=== PATIENT | male | born 1945 | race Caucasian/White ===

== ENCOUNTER 2020-03-26 06:06 | Inpatient (IN) ==
--- NOTE | 2020-02-22 11:42 | Anesthesiology Consultation ---
Date of Service February 22, 2020 Assessment & Plan (1) Encounter for pre-operative examination: Chart Review Chart Review: Acceptable Risk for Surgery (pending anesthesiologist review of EKG DOS and CXR results ) and Patient NOT seen in Pre Admission Testing Awaiting CXR - per order sheet- done at [facility]- will attempt to get results from correctional facility prior to surgery - Check PT/INR DOS since on Coumadin Anesthesiologist will need to review EKG DOS to confirm preliminary reading since EKG was done at [facility]. History Surgery Operation Date: 02/27/20 07:30 Proposed Procedures p Aortobifemoral Bypass - Ozzie Syed MD Height/Weight Height: 6 ft Weight: 90.718 kg Allergies Allergy/AdvReac Type Severity Reaction Status Date / Time No Known Allergies Allergy Verified 02/22/20 07:28 Medications Home Medications Medication Instructions Recorded Confirmed Last Taken enoxaparin [Lovenox] 80 mg SUBCUT DAILY 02/22/20 02/22/20 Unknown famotidine 20 mg PO DAILY 02/22/20 02/22/20 Unknown metoprolol tartrate 25 mg PO QAM 02/22/20 02/22/20 Unknown multivitamin with iron 1 tab PO BID 02/22/20 02/22/20 Unknown potassium chloride 20 meq PO DAILY 02/22/20 02/22/20 Unknown rosuvastatin 20 mg PO DAILY 02/22/20 02/22/20 Unknown tamsulosin 0.4 mg PO DAILY 02/22/20 02/22/20 Unknown warfarin 7 mg PO UD 02/22/20 02/22/20 Unknown Past Medical History Medical History (Updated 02/22/20 @ 16:06 by Silvana Gonzalez PA-C) Anemia Atherosclerosis of arteries CLAUDICATION BILATERAL LEGS Atrial fibrillation Cellulitis ABSCESS PER PROBLEM LIST- WBC CT WNL AND PT NOT ON ABX- STATUS WILL NEED EVALUATED FURTHER AM OF SURGERY Diverticulosis Hyperlipidemia Hypertension Inmate in correctional facility Osteomyelitis PVD (peripheral vascular disease) Social History Smoking Status: Unknown if ever smoked Testing Laboratory Results 02/13/20= WBC: 6.83 H/H: 15.5/43.4 PLATELETS: 272 SODIUM: 143 POTASSIUM: 4.7 CHLORIDE: 107 CO2: 28 BUN: 21 CREATININE: 1.14 GLUCOSE: 130 PT: 24.6 PTT: 47.1 INR: 2.32 Electrocardiogram Date: 02/14/20 Findings: + SB @ (56) Nonspecific T wave abnormality (unconfirmed since done at [facility])
[~2020-03-26 06:06] MED LIST: CEFAZOLIN 2000MG 2,000 MG/15 ML SYR IV SCH; LACTATED RINGER'S 1,000 ML IV SCH
[2020-03-26] MEDS ORDERED: LIDOCAINE HCL 2% 2 ML VIAL/AMP(20MG/ML) INFIL ONE (06:36)
[2020-03-26] MEDS ORDERED: PROPOFOL IV EMULSION 10 MG/ML 20 ML VIAL IV ONE (06:36)
[2020-03-26] MEDS ORDERED: fentaNYL citrate 100 MCG/2 ML VIAL ONE ×2 (06:36→11:26)
[2020-03-26] MEDS ORDERED: ONDANSETRON INJ 2 MG/ML 2 ML VIAL ONE (06:36)
[2020-03-26] MEDS ORDERED: ROCURONIUM BROMIDE 10 MG/ML 5 ML VIAL ONE ×9 (06:36→13:25)
[2020-03-26] MEDS ORDERED: CEFAZOLIN 250 MG/ML 1 GM VIAL ONE (06:58)
[2020-03-26] MEDS ORDERED: HEPARIN (PORCINE) 1000 UNIT/ML 10 ML (CATH LAB USE ONLY) ONE ×2 (06:58→07:20)
[2020-03-26] MEDS ORDERED: GELATIN SPONGE 12-7MM ONE (06:58)
[2020-03-26] MEDS ORDERED: THROMBIN FOR SOLN 20000 UNIT KIT ONE (06:59)
[2020-03-26] MEDS ORDERED: GELATIN SPONGE SZ 100 ONE (07:00)
[2020-03-26] MEDS ORDERED: fentaNYL citrate 100 MCG/2 ML VIAL IV PRN (07:05)
[2020-03-26] MEDS ORDERED: HYDROmorphone INJ 1 MG/ML SYRINGE IV PRN (07:05)
[2020-03-26] MEDS ORDERED: ONDANSETRON INJ 2 MG/ML 2 ML VIAL IV PRN ×2 (07:05→15:38)
[2020-03-26] MEDS ORDERED: ePHEDrine sulfate 50 MG/ML AMP IV PRN (07:05)
[2020-03-26] MEDS ORDERED: LABETALOL HCL IV 5 MG/ML 20ML IV PRN (07:05)
[2020-03-26] MEDS ORDERED: PHENYLEPHRINE 100MCG/ML 5ML SYR IV PRN (07:05)
[2020-03-26] MEDS ORDERED: ATROPINE SULFATE 0.1 MG/ML 10ML SYR IV PRN (07:05)
[2020-03-26] MEDS ORDERED: MEPERIDINE HCL 25 MG/ML CARP/VIAL IV PRN (07:05)
[2020-03-26] MEDS ORDERED: ALBUMIN HUMAN 5% 12.5 GM/250 ML VIAL IV ONE (07:10)
--- NOTE | 2020-03-26 07:22 | History & Physical Report ---
Date of Service March 26, 2020 Assessment & Plan (1) Aortic occlusion: Patient is admitted for an aortobifemoral bypass. I have discussed the risks options and benefits of the procedure with the patient. The patient understands the risks options and benefits and agrees to the procedure. History of Present Illness Chief Complaint: Infrarenal aortic occlusion Primary Care Provider: CHRISTIE Funk Mr. Moseley is a 73-year-old gentleman, who was referred for evaluation of peripheral artery disease. In speaking with Mr. Moseley, he states that he has been having some short-distance claudication symptoms for the past several months. He reports he is able to walk approximately 150 feet before he begins to have crampy pain in his bilateral calves. He feels that the pain is equal and one side is not predominate. He denies any rest pain and has had no issues with tissue loss or poorly healing lower extremity wounds. Allergies Allergy/AdvReac Type Severity Reaction Status Date / Time No Known Allergies Allergy Verified 03/21/20 15:27 Home Medications Home Medications Medication Instructions Recorded Confirmed Type enoxaparin [Lovenox] 80 mg SUBCUT DAILY 02/22/20 03/21/20 History famotidine 20 mg PO DAILY 02/22/20 03/21/20 History metoprolol tartrate 25 mg PO QAM 02/22/20 03/21/20 History multivitamin with iron 1 tab PO BID 02/22/20 03/21/20 History potassium chloride 20 meq PO DAILY 02/22/20 03/21/20 History rosuvastatin 20 mg PO DAILY 02/22/20 03/21/20 History tamsulosin 0.4 mg PO DAILY 02/22/20 03/21/20 History warfarin 7 mg PO UD 02/22/20 03/21/20 History Past Med/Surg History Medical History Anemia Atherosclerosis of arteries CLAUDICATION BILATERAL LEGS Atrial fibrillation Cellulitis ABSCESS PER PROBLEM LIST- WBC CT WNL AND PT NOT ON ABX- STATUS WILL NEED EVALUATED FURTHER AM OF SURGERY Diverticulosis Hyperlipidemia Hypertension Inmate in correctional facility Osteomyelitis PVD (peripheral vascular disease) Social History Preferred Language: Citizen Of [place] Beliefs That Will Affect Care: None Current Living Situation: Other Current Living Situation Comment: [facility] Smoking Status: Former smoker Hx Substance Use: Yes Last Used Substance: Unknown Last Used Substance Other:: 12 yrs Review of Systems All systems reviewed & are unremarkable except as noted in HPI & below Physical Exam Physical Exam: On physical exam, Mr. Moseley appears in no acute distress. He is afebrile. His blood pressure is 148/68 with a heart rate of 62 and respiratory rate of 16. He is saturating 96% on room air today. Examination of his abdomen is soft, nontender, and nondistended. There is no palpable pulsatile mass present. On examination of his groins, he has 1+ bilateral femoral pulses. He has no appreciable popliteal pulse. He has bilateral mottling of his lower extremities, both of which are cool to the touch. There are no open wounds or ulcers present. He has no palpable distal pulse in either extremity, but does have Doppler signals. His lungs are clear. His heart had a RRR. HEENT are wnl. Results & Data Vital Signs (Past 12 Hours) Vital Signs Temp Pulse Resp BP Pulse Ox 03/26/20 06:42 36.7 C 78 22 159/78 H 97
[2020-03-26 07:32] LABS: Partial Thromboplastin Ratio 0.9; Prothrombin Time 10.3 Seconds (9.0-12.0)
[2020-03-26 09:34] LABS: Hematocrit (blood only) 42.4 % (42-52); Hemoglobin 14.5 g/dL (14.0-18.0); Mean Corpuscular Hemoglobin 33.7 pg (25-34); Mean Corpuscular Volume 98.6 fL (80-100); Mean Platelet Volume 9.6 fL (7.4-10.4); Platelet Count 237 K/uL (130-400); RDW Coefficient of Variation 13.5 % (11.5-14.5); RDW Standard Deviation 48.3 fL (36.4-46.3); White Blood Count 8.46 K/uL (4.8-10.8)
[2020-03-26 09:44] LABS: Mean Corpuscular Hgb Conc 34.2 g/dL (32-36)
[2020-03-26 10:02] LABS: BUN Creatinine Ratio 18.6 (10-20); Calcium 9.2 mg/dl (8.5-10.1); Creatinine Clr Calc Pharmacy 76.1 ml/min; Est GFR (African American) 75.7; Est GFR (Non-African American) 65.3
[2020-03-26] MEDS ORDERED: HYDROmorphone INJ 2 MG/ML SYR/VIAL ONE (10:51)
[2020-03-26] MEDS ORDERED: MANNITOL 25% 12.5 GM/50 ML VIAL IV ONE (11:36)
[2020-03-26] MEDS ORDERED: NEOSTIGMINE METHYLSULFATE 5 MG/5 ML SYR ONE (13:25)
[2020-03-26] MEDS ORDERED: ePHEDrine sulfate 50 MG/ML SYR ONE (13:25)
[2020-03-26] MEDS ORDERED: PHENYLEPHRINE HCL 10 MG/ML VIAL ONE (13:25)
[2020-03-26] MEDS ORDERED: GLYCOPYRROLATE 0.2 MG/ML VIAL ONE (13:25)
[2020-03-26] MEDS ORDERED: PROTAMINE SULFATE 10 MG/ML 5 ML VIAL ONE (13:45)
[2020-03-26] MEDS ORDERED: HEPARIN SOD (PORCINE) 1000 UNIT/ML 10 ML VIAL ONE ×2 (13:45)
--- NOTE | 2020-03-26 14:15 | Post Operative Brief Note ---
Immediate Post Op Note v1 Date of Surgery March 26, 2020 Pre & Post Diagnosis Operation Date: 03/26/20 08:00 Pre-Op Diagnosis: Aorto Iliac Occlusion Post-Op Diagnosis: Aorto Iliac Occlusion I identified the patient and participated in the time-out.: Yes Procedure Operation Date: 03/26/20 08:00 Actual Procedures p Aortobifemoral Bypass(Not Applicable) - Ozzie Syed MD Surgeon Ozzie Syed MD Hasher Machine Operator Devendra,PAC Estimated Blood Loss 250 Findings Consistent with Post-Op Diagnosis Drains Simon Catheter Anesthesia Type General Complications none Disposition Accompanied Patient To Recovery: No Disposition: Recovery Room
[2020-03-26 14:58] LABS: iSTAT Arterial Blood Gas HCO3 21 meg/L (19-24); iSTAT Arterial Blood Gas pCO2 46 mmHg (35-46); iSTAT Arterial Blood Gas pH 7.27 (7.35-7.45); iSTAT Arterial Blood Gas pO2 214 mmHg (80-95); iSTAT Carbon Dioxide 23 mmol/L (24-31); iSTAT Hematocrit 33 % (42-52); iSTAT Hemoglobin 11.2 g/dl (14.0-18.0); iSTAT Potassium 4.1 mmol/L (3.3-5.0); iSTAT Sodium 140 mmol/L (135-144)
--- NOTE | 2020-03-26 16:01 | Critical Care Consultation ---
Date of Consultation March 26, 2020 Assessment & Plan (1) Admitted to intensive care unit: Impression: 74-year-old male admitted for aortobifem. Procedure performed 03/26/2020. Patient being observed in the ICU postoperatively. Recommendations: 1. Status post aortobifem: Management per vascular surgery service. 2. Metabolic acidosis: Blood gas obtained at 130 today showed a mixed metabolic and respiratory acidosis. Suspect this is markedly improved. Would follow clinically at this point time. Await follow-up laboratory studies. 3. History of reflux: Continue PPI. Diet per vascular surgery. 4. Hyperlipidemia: Restart lipid-lowering agent when feasible. 5. History of BPH: Simon catheter currently in place. Recommend restarting Flomax as soon as possible. Additional recommendations will be based on results of laboratory studies. Disposition per vascular surgery. (2) Aortic occlusion: (3) Metabolic acidosis: History of Present Illness Attending Physician: Ozzie Syed MD History of Present Illness Asked by Dr. Syed to assist with critical care management of this patient status post urgent aortobifem. History is obtained from review electronic medical record and discussion with patient at bedside. The patient is a 74-year-old male who was referred to vascular surgery for bilateral lower extremity claudication. He was found to have aortoiliac atherosclerotic disease and taken to the OR today where he underwent an aortobifem. He was extubated in PACU and brought to the ICU for recovery. He has an arterial line in place. He is hemodynamically stable. He is awake alert. He states his pain is adequately controlled. He has a Simon catheter in place. He is moving both of his lower extremities and they are warm to touch with palpable pulses. Sensation is intact in the bilateral lower extremities. Allergies Allergy/AdvReac Type Severity Reaction Status Date / Time No Known Allergies Allergy Verified 03/21/20 15:27 Home Medications Home Medications Medication Instructions Recorded Confirmed Type enoxaparin [Lovenox] 80 mg SUBCUT DAILY 02/22/20 03/26/20 History famotidine 20 mg PO DAILY 02/22/20 03/26/20 History metoprolol tartrate 25 mg PO QAM 02/22/20 03/26/20 History multivitamin with iron 1 tab PO BID 02/22/20 03/26/20 History potassium chloride 20 meq PO DAILY 02/22/20 03/26/20 History rosuvastatin 20 mg PO DAILY 02/22/20 03/26/20 History tamsulosin 0.4 mg PO DAILY 02/22/20 03/26/20 History warfarin 7 mg PO UD 02/22/20 03/26/20 History Patient History Medical History Anemia Atherosclerosis of arteries CLAUDICATION BILATERAL LEGS Atrial fibrillation Cellulitis ABSCESS PER PROBLEM LIST- WBC CT WNL AND PT NOT ON ABX- STATUS WILL NEED EVALUATED FURTHER AM OF SURGERY Diverticulosis Hyperlipidemia Hypertension Inmate in correctional facility Osteomyelitis PVD (peripheral vascular disease) Social History Preferred Language: [place] Beliefs That Will Affect Care: None Current Living Situation: Other Current Living Situation Comment: [facility] Smoking Status: Former smoker Hx Substance Use: Yes Last Used Substance: Unknown Last Used Substance Other:: 12 yrs Review of Systems Review of Systems: Please refer to the admission H&P. I have no additions or deletions Physical Exam Constitutional: WD/WN, vitals as above Patient is awake alert and responsive. Neck: trachea midline, no thyromegaly Respiratory: normal respiratory effort, lungs clear to auscultation Cardiovascular: RRR, no murmur, no edema Gastrointestinal (Abdomen): normal bowel sounds, soft, nontender, no hepatosplenomegaly Musculoskeletal: Extremities: extremities normal to inspection Skin: no rashes, warm and dry Neurologic: Nonfocal exam Lymphatic: no cervical lymphadenopathy Results & Data Results & Data ([facility]) Vital Signs (Past 12 Hours) Vital Signs Temp Pulse Resp BP BP Pulse Ox 03/26/20 15:20 36.1 C L 105 H 16 128/86 127/64 93 03/26/20 15:10 105 H 16 131/98 134/66 94 03/26/20 15:00 104 H 15 132/96 154/71 H 96 03/26/20 14:50 102 H 13 134/91 152/68 H 97 03/26/20 14:40 102 H 15 150/85 H 96 03/26/20 14:33 36.7 C 100 H 14 124/87 96 03/26/20 06:42 36.7 C 78 22 159/78 H 97 Laboratory Results 03/26/20 09:24 03/26/20 09:24 Diagnostic Findings No films available to review. Coding Level of Care Code 60357 Inpt Consult Level 4 Diagnoses Admitted to intensive care unit Z78.9 Aortic occlusion I70.0 Metabolic acidosis E87.2 Time Spent (min) 39
[2020-03-26 16:06] LABS: Hematocrit (blood only) 39.4 % (42-52); Hemoglobin 13.7 g/dL (14.0-18.0)
[2020-03-26 16:22] LABS: BUN Creatinine Ratio 14.5 (10-20); Calcium 8.4 mg/dl (8.5-10.1); Creatinine Clr Calc Pharmacy 56.1 ml/min; Est GFR (African American) 52.3; Est GFR (Non-African American) 45.1; Potassium 4.3 mmol/L (3.5-5.1)
--- NOTE | 2020-03-26 16:39 | Anesthesiology Progress Note ---
Date of Service March 26, 2020 Anesthesia Post Procedure Vital Signs Vital Signs: Temp Pulse Pulse Resp BP BP BP 03/26/20 16:10 111 H 18 03/26/20 16:00 114 H 24 117/70 03/26/20 15:39 36.6 C 108 H 19 112/88 03/26/20 15:38 110 H 03/26/20 15:20 36.1 C L 105 H 16 128/86 127/64 03/26/20 15:10 105 H 16 131/98 134/66 03/26/20 15:00 104 H 15 132/96 154/71 H 03/26/20 14:50 102 H 13 134/91 152/68 H 03/26/20 14:40 102 H 15 150/85 H 03/26/20 14:33 36.7 C 100 H 14 124/87 03/26/20 06:42 36.7 C 78 22 159/78 H Pulse Ox 03/26/20 16:10 94 03/26/20 16:00 95 03/26/20 15:39 03/26/20 15:38 03/26/20 15:20 93 03/26/20 15:10 94 03/26/20 15:00 96 03/26/20 14:50 97 03/26/20 14:40 96 03/26/20 14:33 96 03/26/20 06:42 97 Pain Intensity Abdomen: Pain Intensity: 0 Transfer of Care Handoff Completed per policy Notes Mental Status: alert / awake / arousable and participated in evaluation Patient Amnestic to Procedure: Yes Nausea / Vomiting: adequately controlled Pain: adequately controlled Airway Patency, RR, SpO2: stable & adequate BP & HR: stable & adequate Hydration State: stable & adequate Anesthetic Complications: no major complications apparent and Pt Satisfied with anesthetic care
[2020-03-26] MEDS: D5W AND 1/2NSS 1,000 ML IV SCH (16:41)
[2020-03-26] MEDS: MoRPHine SULFATE 4 MG/ML 1 ML CARP\\VIAL IV PRN ×2 (17:02→23:15)
[2020-03-26] MEDS: CEFAZOLIN 2000MG 2,000 MG/15 ML SYR IV SCH (18:41)
[2020-03-27] MEDS: D5W AND 1/2NSS 1,000 ML IV SCH ×2 (00:01→09:47)
[2020-03-27] MEDS: CEFAZOLIN 2000MG 2,000 MG/15 ML SYR IV SCH (02:15)
[2020-03-27] MEDS: MoRPHine SULFATE 4 MG/ML 1 ML CARP\\VIAL IV PRN ×6 (02:39→20:52)
[2020-03-27 04:53] LABS: Basophils # (auto) 0.01 K/uL (0-0.2); Basophils % (auto) 0.1 %; Hematocrit (blood only) 39.4 % (42-52); Hemoglobin 13.6 g/dL (14.0-18.0); Immature Granulocytes # (auto) 0.01 K/uL (0.00-0.02); Immature Granulocytes % (auto) 0.1 %; Lymphocytes # (auto) 1.24 K/uL (1.2-3.4); Lymphocytes % (auto) 10.4 %; Mean Corpuscular Hgb Conc 34.5 g/dL (32-36); Mean Corpuscular Volume 98.5 fL (80-100); Mean Platelet Volume 9.7 fL (7.4-10.4); Monocytes # (auto) 1.58 K/uL (0.11-0.59); Monocytes % (auto) 13.2 %; Neutrophils # (auto) 9.11 K/uL (1.4-6.5); Neutrophils % (auto) 76.2 %; Platelet Count 190 K/uL (130-400); RDW Coefficient of Variation 13.5 % (11.5-14.5); White Blood Count 11.95 K/uL (4.8-10.8)
[2020-03-27 05:15] LABS: BUN Creatinine Ratio 13.5 (10-20); Calcium 8.1 mg/dl (8.5-10.1); Creatinine Clr Calc Pharmacy 33.2 ml/min; Est GFR (African American) 27.7; Est GFR (Non-African American) 23.9; Magnesium 1.8 mg/dl (1.8-2.4)
[2020-03-27 05:55] LABS: Phosphorus 1.5 mg/dl (2.5-4.9)
--- NOTE | 2020-03-27 07:50 | Critical Care Progress Note ---
Date of Service March 27, 2020 Assessment & Plan (1) Admitted to intensive care unit: Impression: 74-year-old male admitted for aortobifem. Procedure performed 03/26/2020. Patient being observed in the ICU postoperatively. Recommendations: 1. Status post aortobifem: Management per vascular surgery service. 2. Metabolic acidosis: Serum bicarb improved on chemistry panel. Continue to trend labs. 3. History of reflux: Continue PPI. Diet per vascular surgery. 4. Hyperlipidemia: Restart lipid-lowering agent when feasible. 5. History of BPH: Simon catheter currently in place. Recommend restarting Flomax as soon as possible. 6. Acute renal failure: Baseline creatinine of 1.1 now up to 2.57. Suspect related to ATN from contrast, hypoperfusion. UOP 975 last 24 hours. Potassium is increased to 5. Phosphate is low at 1.5 magnesium is acceptable as is calcium. Will discuss with Vasc surgery use of K binders. Possible nephrology consult. Will check UA. Defer renal US to vasc surgery. May benefit from additional IVF, will discuss with vascular. 7. Hyperglycemia: The patient has been initiated on the ICU hyperglycemia protocol. check HgBA1c. Will take glucose out of IVF. Additional recommendations will be based on results of laboratory studies. Disposition per vascular surgery. (2) Aortic occlusion: (3) Metabolic acidosis: Admission and Anticipated Discharge Date Admission Date: March 26, 2020 Subjective Patient is remained mildly tachycardic but otherwise hemodynamically stable throughout the night. He does complain of some continued abdominal pain. He is not yet experiencing flatus. No nausea or vomiting. No numbness tingling or pain in the legs. Physical Exam Constitutional: WD/WN, vitals as above Neck: trachea midline, no thyromegaly Respiratory: normal respiratory effort, lungs clear to auscultation Cardiovascular: RRR, no murmur, no edema Gastrointestinal (Abdomen): normal bowel sounds, soft, nontender, no he patosplenomegaly Musculoskeletal: Extremities: extremities normal to inspection Skin: no rashes, warm and dry Lymphatic: no cervical lymphadenopathy Results & Data Results & Data ([facility]) Vital Signs (Past 12 Hours) Vital Signs Temp Pulse Resp BP Pulse Ox 03/27/20 06:00 36.6 C 113 H 20 133/71 90 03/27/20 05:00 114 H 19 136/67 90 03/27/20 04:00 108 H 19 125/66 92 03/27/20 03:00 36.9 C 113 H 16 136/66 91 03/27/20 02:00 36.9 C 114 H 19 121/66 92 03/27/20 01:00 37 C 118 H 19 141/70 H 92 03/27/20 00:00 37 C 116 H 15 125/72 96 03/26/20 23:00 36.9 C 116 H 18 92 03/26/20 22:00 36.8 C 120 H 23 124/68 93 03/26/20 21:30 120 H 22 96 03/26/20 21:00 117 H 17 127/67 96 03/26/20 20:30 118 H 16 95 03/26/20 20:00 119 H 20 99/64 L 96 Laboratory Results 03/27/20 04:24 03/27/20 04:24 Diagnostic Findings No new imaging Coding Level of Care Code 73927 Subseq Hosp Care Lvl 3 Diagnoses Admitted to intensive care unit Z78.9 Aortic occlusion I70.0 Metabolic acidosis E87.2
[2020-03-27] MEDS: SODIUM CHLORIDE 0.9% 1000ML 1,000 ML IV SCH ×3 (07:53→23:12)
[2020-03-27] MEDS ORDERED: ENOXAPARIN 80 MG/0.8 ML SYR SQ SCH (09:00)
[2020-03-27] MEDS ORDERED: METOPROLOL TARTRATE 25 MG TAB PO SCH (09:00)
[2020-03-27] MEDS: ICU PROTOCOL FOR HYPERGLYCEMIA SCH (09:47)
[2020-03-27 10:01] LABS: Estimated Average Glucose 123 mg/dl; Hemoglobin A1C 5.9 % (4.5-5.6)
[2020-03-27] MEDS ORDERED: PHARMACY GLYCEMIC MGMT CONSULT PRN (10:02)
[2020-03-27] MEDS ORDERED: INSULIN GLARGINE SOLOSTAR 100 UNITS/ML 3 ML PEN SC ONE (10:15)
[2020-03-27] MEDS ORDERED: SODIUM CHLORIDE 0.9% 1000ML 1,000 ML IV SCH (11:00)
[2020-03-27] MEDS: INSULIN ASPART 100 UNITS/ML 3 ML PEN SC SCH ×3 (11:21→23:13)
--- NOTE | 2020-03-27 11:21 | Pharmacy Report ---
Glycemic Control Consultation - Date of Service March 27, 2020 - Scope Scope: Glycemic Pharmacist consulted for glycemic control and to write orders per [facility] inpatient glycemic control protocol. - Objective Weight: 110.8 kg Accuchecks BSG (last 24hrs): 03/26/20 03/26/20 03/27/20 15:58 16:18 04:24 Glucose 190 H 261 H POC Glucose 207 H 03/27/20 08:22 Glucose POC Glucose 223 H Laboratory Data (last 24hrs): 03/26/20 03/27/20 15:58 04:24 Potassium 4.3 5.0 D Carbon Dioxide 19 L 21 Anion Gap 9.0 8.0 Creatinine 1.52 H D 2.57 H D Est Cr Clr Drug Dosing 56.1 33.2 HbA1c: Hemoglobin A1c 5.9 % (4.5-5.6) H 03/27/20 04:24 - Recent Pertinent Medications Outpatient Anti-diabetic Regimen: * None * A1c = 5.9 % on 03/27/20 Risk Factors for Insulin Resistance: * IVF: D5 1/2NS @ 125 mL/hr (started 03/26 @ ~1700, discontinued 03/27 @ ~0900) * Recent Surgery: POD 1 s/p aortobifemoral bypass * Diet: NPO - Assessment & Plan Assessment & Plan: ASSESSMENT: * 74 yo M with HbA1c suggestive of prediabetes (not on outpatient antihyperglycemic medications) admitted 03/26 with aortoiliac occlusion and is now s/p bypass. Hyperglycemia is likely 2nd physiologic stress from surgery plus D5W containing IVF, which was changed to a non-dextrose containing IVF this AM * Discussed on ICU rounds - OK to hold of on insulin drip that would have been initiated per the ICU hyperglycemic protocol as patient has received no insulin thus far, and the dextrose IVF has been held * Will initiate basal/bolus insulin * Low dose basal selected 2nd NPO status, notable DOMINICK, and elimination of one of the factors contributing to hyperglycemia (dextrose IVF) * Bolus parameters per calculator: weight-based moderate stress * Lower goal range selected as compared to usual ICU patient 2nd surgery yesterday to promote post-op healing and prevent infection PLAN FOR INPATIENT GLYCEMIC CONTROL: * Basal insulin * Lantus 15 units SQ x1 * Bolus insulin * NovoLog per scale ACHS or Q6hrs while NPO * Goal Range: Low 110 mg/dL - High 140 mg/dL * Correction Factor: 20 mg/dL/unit * Nutritional / Prandial insulin per carb ratio of 1 unit per 7 grams CHO consumed * Please note that the plan above was derived based on current level of insulin resistance and hospital stress. These recommendations are appropriate for inpatient admission only. Plan of care upon discharge will need to be reassessed to avoid potential outpatient hypo/hyperglycemia. Thank you.
[2020-03-27] MEDS: PANTOprazole 40 MG in SYRINGE 0 ML IV SCH (11:26)
--- NOTE | 2020-03-27 13:15 | Surgery Progress Note ---
Date of Service March 27, 2020 Assessment & Plan (1) Aortic occlusion: Patient is postoperative day 1 from an aortobifemoral bypass.He is doing well other than the slight increase in his BUN and creatinine. We will continue present treatment (2) Acute renal injury due to hypovolemia: At this point with his increase in BUN and creatinine and a decrease in his urine output he may be hypovolemic from third spacing.We will bolus him with a liter of fluid. We will follow along conservatively at this point and hopes that hydration ruled bring his creatinine back down to normal range.If his creatinine is still awaited tomorrow and his urine output is still decreased we will consult nephrology. Subjective Patient is awake and alert and oriented x3. He is complaining of abdominal pain he claims that his feet do feel better at this point in time. Physical Exam Constitutional: WD/WN, vitals as above Respiratory: Auscultation: lungs clear to auscultation bilaterally Cardiovascular: Rate/Rhythm: regular rate and regular rhythm Vessels: posterior tibial pulses present (Doppler pulses are good on both sides) and dorsalis pedis pulses present (Good Doppler pulses on both sides) Extremities: normal capillary refill (Both lower extremities); no edema Gastrointestinal (Abdomen): Inspection/Auscultation: + abdomen distended; + abnormal bowel sounds Percussion/Palpation: + abdomen tender (Abdomen is tender to palpation.) and abdomen soft Skin: + incision (Dressings are dry and intact.) Psychiatric: Orientation: alert and oriented x 3 Results & Data Vital Signs (Past 12 Hours) Vital Signs Temp Pulse Pulse Resp BP BP Pulse Ox 03/27/20 10:50 102 H 17 93 03/27/20 10:42 110 H 03/27/20 10:40 102 H 17 93 03/27/20 10:30 110 H 24 94 03/27/20 10:20 119 H 18 93 03/27/20 10:10 97 H 17 94 03/27/20 10:00 36.8 C 103 H 21 122/71 94 03/27/20 09:00 108 H 17 123/69 93 03/27/20 08:00 111 H 28 H 133/68 94 03/27/20 07:00 37.4 C 110 H 112 H 20 129/73 129/73 90 03/27/20 06:00 36.6 C 113 H 20 133/71 90 03/27/20 05:00 114 H 19 136/67 90 03/27/20 04:00 108 H 19 125/66 92 03/27/20 03:00 36.9 C 113 H 16 136/66 91 03/27/20 02:00 36.9 C 114 H 19 121/66 92
[2020-03-27] MEDS ORDERED: ICU ELECTROLYTE REPLACEMENT PROTOCOL PRN (13:17)
[2020-03-27] MEDS ORDERED: BUMETANIDE 1 MG in SYRINGE 0 ML IV ONE (13:30)
[2020-03-27] MEDS: ACETAMINOPHEN 325 MG TAB PO PRN (20:51)
[2020-03-27] MEDS: METOPROLOL TARTRATE 25 MG TAB PO SCH (20:52)
[2020-03-28] MEDS: MoRPHine SULFATE 4 MG/ML 1 ML CARP\\VIAL IV PRN ×4 (04:04→23:35)
[2020-03-28 05:04] LABS: Basophils # (auto) 0.02 K/uL (0-0.2); Basophils % (auto) 0.2 %; Hematocrit (blood only) 32.7 % (42-52); Hemoglobin 11.6 g/dL (14.0-18.0); Immature Granulocytes # (auto) 0.02 K/uL (0.00-0.02); Immature Granulocytes % (auto) 0.2 %; Lymphocytes % (auto) 14.7 %; Mean Corpuscular Hemoglobin 35.2 pg (25-34); Mean Corpuscular Hgb Conc 35.5 g/dL (32-36); Mean Corpuscular Volume 99.1 fL (80-100); Mean Platelet Volume 9.7 fL (7.4-10.4); Monocytes # (auto) 1.72 K/uL (0.11-0.59); Monocytes % (auto) 14.9 %; Neutrophils # (auto) 8.09 K/uL (1.4-6.5); Platelet Count 164 K/uL (130-400); RDW Coefficient of Variation 13.6 % (11.5-14.5); RDW Standard Deviation 48.7 fL (36.4-46.3); White Blood Count 11.55 K/uL (4.8-10.8)
[2020-03-28 05:31] LABS: BUN Creatinine Ratio 23.2 (10-20); Calcium 7.7 mg/dl (8.5-10.1); Creatinine Clr Calc Pharmacy 46.4 ml/min; Est GFR (African American) 41.2; Est GFR (Non-African American) 35.6; Magnesium 1.7 mg/dl (1.8-2.4); Potassium 4.6 mmol/L (3.5-5.1)
[2020-03-28 05:41] LABS: Phosphorus 2.2 mg/dl (2.5-4.9)
[2020-03-28] MEDS: HEPARIN SOD 5,000 UNIT/0.5 ML VIAL SC SCH ×3 (06:13→21:21)
[2020-03-28] MEDS: INSULIN ASPART 100 UNITS/ML 3 ML PEN SC SCH ×3 (06:14→18:15)
[2020-03-28] MEDS: MAGNESIUM SULFATE / D5W 1 GM/100 ML BAG IV SCH ×2 (06:16→08:04)
[2020-03-28] MEDS: SODIUM CHLORIDE 0.9% 1000ML 1,000 ML IV SCH ×3 (06:42→22:13)
--- NOTE | 2020-03-28 07:53 | Critical Care Progress Note ---
Date of Service March 28, 2020 Assessment & Plan (1) Admitted to intensive care unit: Impression: 74-year-old male admitted for aortobifem. Procedure performed 03/26/2020. Patient being observed in the ICU postoperatively. Postoperative course with postoperative ileus and renal insufficiency, improving today Recommendations: 1. Status post aortobifem: Management per vascular surgery service. Has been hemodynamically stable. Defer decision on removal of arterial line to vascular surgery. 2. Metabolic acidosis: Serum bicarb improved on chemistry panel. Continue to trend labs. 3. Probable ileus: Continue NG tube. History of reflux: Continue PPI. Diet per vascular surgery. Defer imaging to vascular surgery. Activity per vascular surgery 4. Hyperlipidemia: Restart lipid-lowering agent when feasible. 5. History of BPH: Simon catheter currently in place. Recommend restarting Flomax as soon as possible. 6. Acute renal failure: Serum creatinine improved today with some additional IV fluids and monitoring. Potassium and electrolytes improved with the exception of mild hypocalcemia. 7. Hyperglycemia: Continue sliding scale insulin and as needed Lantus. Hemoglobin A1c elevated at 5.9. May benefit from oral hypoglycemic therapy or close clinical follow-up in the outpatient setting. Should have diabetic education prior to discharge Disposition per vascular surgery. (2) Aortic occlusion: (3) Metabolic acidosis: Admission and Anticipated Discharge Date Admission Date: March 26, 2020 Subjective Patient seen and examined. EMR reviewed. His only complaint this morning is being thirsty. He denies any nausea and vomiting. No chest pain or palpitations. He continues to complain of some mild abdominal pain. He is not yet passing gas. No numbness tingling or pain in the legs. Review of Systems Review of Systems: Unchanged from prior Physical Exam Constitutional: WD/WN, vitals as above Neck: trachea midline, no thyromegaly Respiratory: normal respiratory effort, lungs clear to auscultation Cardiovascular: RRR, no murmur, no edema Gastrointestinal (Abdomen): normal bowel sounds, soft, nontender, no hepatosplenomegaly Inspection/Auscultation: abdomen normal to inspection; abdomen not distended and + abnormal bowel sounds Diminished bowel sounds throughout. Musculoskeletal: Extremities: extremities normal to inspection Skin: no rashes, warm and dry Lymphatic: no cervical lymphadenopathy Results & Data Results & Data ([facility]) Vital Signs (Past 12 Hours) Vital Signs Temp Pulse Resp BP Pulse Ox 03/28/20 06:00 102 H 20 145/69 H 93 03/28/20 05:30 102 H 21 93 03/28/20 05:00 102 H 15 143/65 H 93 03/28/20 04:30 100 H 19 91 03/28/20 04:00 36.8 C 101 H 22 142/70 H 94 03/28/20 03:30 101 H 24 93 03/28/20 03:00 101 H 18 142/67 H 93 03/28/20 02:30 100 H 16 92 03/28/20 02:00 100 H 24 132/65 93 03/28/20 01:30 96 H 22 92 03/28/20 01:00 98 H 23 162/62 H 91 03/28/20 00:30 97 H 29 H 90 03/28/20 00:00 37.3 C 99 H 24 130/62 92 03/27/20 23:30 100 H 24 93 03/27/20 23:00 99 H 23 149/65 H 93 03/27/20 22:30 85 24 91 03/27/20 22:00 98 H 23 139/55 L 91 03/27/20 21:30 103 H 24 91 03/27/20 21:00 108 H 20 152/69 H 91 03/27/20 20:30 93 H 21 92 03/27/20 20:00 100 H 23 137/61 92 Laboratory Results 03/28/20 04:36 03/28/20 04:36 Diagnostic Findings No new films Coding Level of Care Code 70021 Subseq Hosp Care Lvl 3 Diagnoses Admitted to intensive care unit Z78.9 Aortic occlusion I70.0 Metabolic acidosis E87.2 Time Spent (min) 35
[2020-03-28] MEDS: METOPROLOL TARTRATE 25 MG TAB PO SCH ×2 (08:03→21:21)
[2020-03-28] MEDS: ACETAMINOPHEN 325 MG TAB PO PRN (08:04)
--- NOTE | 2020-03-28 08:43 | Operative Report ---
Post Operative Report Pre & Post Diagnosis Operation Date: 03/26/20 08:00 Pre-Op Diagnosis: Aorto Iliac Occlusion Post-Op Diagnosis: Aorto Iliac Occlusion I identified the patient and participated in the time-out.: Yes Procedure Operation Date: 03/26/20 08:00 Actual Procedures p Aortobifemoral Bypass(Not Applicable) - Ozzie Syed MD Surgeon Ozzie Syed MD Production Aide Devendra,PAC Estimated Blood Loss 250 Findings Consistent with Post-Op Diagnosis Specimens None Anesthesia Type General Complications none Disposition Accompanied Patient To Recovery: No Disposition: Recovery Room Indications This is a 74-year-old gentleman who has 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 He has severe claudication which is gotten progressively worse. He is unable to walk more than a few steps before he has to stop and rest. He cannot do his daily activity. Aortobifemoral bypass was recommended. I have discussed the risks options and benefits of the procedure with the patient. The patient understands the risks options and benefits and agrees to the procedure. Description of Procedure The patient was taken the operating placed in supine position. After general anesthesia was accomplished the abdomen and groins were prepped and draped in a sterile manner. Patient was identified and timeout was performed. Longitudinal incision was made in the midline from the xiphoid down to just above the symphysis pubis. The abdominal cavity was entered in the midline. Quick exploration did not find any gross pathology. The NG tube was in the stomach. The transverse colon omentum was packed upward. The small bowel was retracted to the right and the retroperitoneum was opened. The duodenum was mobilized to the right side. The aorta was isolated. This was done from the inferior mesenteric artery up to the renal level. We then slung the renal vein and isolated the aorta above the renal vein. Aorta below the renals appeared to be soft not heavily calcified. We decided to try to pull the clot out without having to clamp the renal arteries. We we made a transverse aortotomy approximately 5 cm below the renals. #6 Milvia catheter was passed upward. At that point the balloon was inflated. The suprarenal artery was manually compressed and the Milvia removed pulling a large plug out of the infrarenal aorta. There was a fairly good flow noted. There is still a piece of mural thrombus present on the wall of the left side. The #6 Milvia was then passed upward. The balloon again was inflated and pulled downward. The suprarenal aorta was compressed during this. The large mural thrombus was removed. Excellent flow was then seen at that time. Aorta was then clamped below the renal arteries. 16 x 8 propatent graft was then brought to the operative field. The shaft was cut the appropriate length and an end-to-end anastomosis was accomplished using a 3-0 Prolene suture. Once this was done the aorta was flushed distally. Clamp was replaced on the aorta below the renals. Adequate hemostasis was noted of the suture line. Next bilateral groin cutdowns were performed. The common femoral arteries identified on both sides as well as the bifurcation of the femoral. Both superficial femoral profundofemoral and common femoral arteries were soft. Retroperitoneal tunnels were then performed from the groins up to the retroperitoneum in the aortic area. The appropriate limbs of the graft were passed to the appropriate groins. The right side the right common superficial profundofemoral arteries were clamped. Longitudinal arteriotomy was performed. The graft was then pulled the appropriate length and an end-to-side anastomosis was accomplished using a CV 5 [place] suture in usual vascular fashion. Prior to completing this anastomosis backbleeding for bleeding was allowed to occur. The final few sutures were then placed and securely tied. Clamps removed from the profunda, followed by the superficial femoral artery. Excellent flow was seen distally. Active hemostasis was noted to the suture line. Next the left common superficial profundofemoral arteries were clamped. Longitudinal arteriotomy was started on the common femoral artery. The graft was then trimmed and beveled the appropriate length and again the anastomosis was accomplished on the left side and an end-to-side fashion using C5 [place]-Aaron suture again in usual vascular fashion. Prior to completing this closure backbleeding for bleeding was allowed to occur. Final few sutures were then placed and securely tied. Clamps removed from the profunda and common femoral arteries followed by the superficial femoral artery. As on the right excellent flow was seen in the right side beyond the anastomosis. Adequate of hemostasis was seen of the suture line. At that point the groins and belly were irrigated with biotic solution. The retroperitoneum was then approximated over the graft with 3-0 Vicryl's. The bowel contents were allowed to fall back into place. Midline incision was then closed with a running double-stranded #1 PDS suture followed by 3-0 Vicryl subcutaneous layer and malou for the skin. Adequate hemostasis was seen in the groins and these were also closed with a 2-0 Vicryl suture for the femoral sheath 3-0 Vicryl for the subcutaneous layer and malou for the skin. Sterile dressings were applied to the wounds. Patient had good distal pulses in the feet to Dopplers and palpable posterior tibials.The patient left the operation room in satisfactory condition and t olerated the procedure well. All needle and sponge counts were correct at the end of the procedure. Elizabeth Rodríguez Pac assisted due to lack of resident availability and was necessary for positioning, draping, retraction, wound closure deep layers, subcutaneous tissue, and skin closure and was necessary for assisting with the case. I attest to the content of the Intraoperative Record and any orders documented therein. Any exceptions are noted below.
[2020-03-28] MEDS ORDERED: INSULIN GLARGINE SOLOSTAR 100 UNITS/ML 3 ML PEN SC ONE (09:00)
--- NOTE | 2020-03-28 09:41 | Surgery Progress Note ---
Date of Service March 28, 2020 Assessment & Plan (1) S/P aorto-bifemoral bypass surgery: Pt overall improving post op. UOP increased and Cr down to 1.7 from 2. Continues to require oxygen. Tachycardia noted. No flatus or bowel sounds noted. Hgb stable. Incisions healing well, excellent doppler signals in BLE. OOB today. Continue to monitor. (2) Aortic occlusion: Pt now s/p aortobifem bypass. See above. Subjective 74 yo m POD #2 after aortobifemoral bypass, seen in f/u today. Pt admits pain in abd and incisions, controlled with medication. No pain in feet/legs. Admits fatigue. No flatus or BM, continues with NG tube in place. Denies SOB, chest pain. Per staff, pt with good doppler signals and he continues to require 2LO2. UOP increasing. Mentation normal, but tired. Review of Systems Review of Systems: All systems reviewed & are unremarkable except as noted in HPI & below Physical Exam Constitutional: WD/WN, vitals as above Respiratory: Auscultation: + diminished lung sounds and + crackles Cardiovascular: Rate/Rhythm: + irregularly irregular Vessels: femoral pulses present, posterior tibial pulses present (excellent doppler signals BLE), dorsalis pedis pulses present (excellent doppler signals BLE) and radial pulses present; + abnormal peripheral pulses Extremities: normal capillary refill and + edema Gastrointestinal (Abdomen): Inspection/Auscultation: + abdomen distended (mildly distended, soft); + abnormal bowel sounds Percussion/Palpation: + abdomen tender (incisions) Musculoskeletal: no cyanosis or clubbing, extremities motor strength 5/5 Skin: + incision (C/D/I with malou, minimal bloody drainage noted.dressings dry) Neurologic: moves all extremities; no focal motor deficits Psychiatric: A+Ox3, euthymic affect Results & Data Vital Signs (Past 12 Hours) Vital Signs Temp Pulse Resp BP Pulse Ox 03/28/20 06:00 102 H 20 145/69 H 93 03/28/20 05:30 102 H 21 93 03/28/20 05:00 102 H 15 143/65 H 93 03/28/20 04:30 100 H 19 91 03/28/20 04:00 36.8 C 101 H 22 142/70 H 94 03/28/20 03:30 101 H 24 93 03/28/20 03:00 101 H 18 142/67 H 93 03/28/20 02:30 100 H 16 92 03/28/20 02:00 100 H 24 132/65 93 03/28/20 01:30 96 H 22 92 03/28/20 01:00 98 H 23 162/62 H 91 03/28/20 00:30 97 H 29 H 90 03/28/20 00:00 37.3 C 99 H 24 130/62 92 03/27/20 23:30 100 H 24 93 03/27/20 23:00 99 H 23 149/65 H 93 03/27/20 22:30 85 24 91 03/27/20 22:00 98 H 23 139/55 L 91 03/27/20 21:30 103 H 24 91
[2020-03-28] MEDS: PANTOprazole 40 MG in SYRINGE 0 ML IV SCH (11:06)
--- NOTE | 2020-03-28 12:56 | Pharmacy Report ---
Pharmacy Glycemic Short Note 2 - Date of Service March 28, 2020 - Glycemic Short BSG Results (Last 24 hours): 03/27/20 03/27/20 03/28/20 17:53 22:59 04:36 Glucose 142 H POC Glucose 133 H 144 H 03/28/20 03/28/20 06:08 10:52 Glucose POC Glucose 139 H 135 H Outpatient Anti-diabetic Regimen: * None * A1c = 5.9 % on 03/27/20 The patient is currently receiving: * Basal insulin * Lantus 15 units SQ x1 03/27 AM * Bolus insulin * NovoLog per scale ACHS or Q6hrs while NPO * Goal Range: Low 110 mg/dL - High 140 mg/dL * Correction Factor: 20 mg/dL/unit * Nutritional / Prandial insulin per carb ratio of 1 unit per 7 grams CHO consumed Risk Factors for Insulin Resistance: * Recent Surgery: POD 2 s/p aortobifemoral bypass * Diet: NPO ASSESSMENT: * 74 yo M with HbA1c suggestive of prediabetes (not on outpatient antihyperglycemic medications) admitted 03/26 with aortoiliac occlusion and is now s/p bypass. Hyperglycemia is likely 2nd physiologic stress from surgery plus D5W containing IVF. Hyperglycemia has resolved with discontinuation of D5W containing IVF and initiation of basal/bolus insulin, with BSG's ranging 133-144 mg/dL over the last 24 hours * AM BSG with significant down trend from 223 to 139 mg/dL after Lantus initiated yesterday. However, suspect decrease is not solely due to Lantus as D5W was still infusing yesterday AM. Will decrease Lantus this AM and provide ongoing scale to dose based on BSG * Tighter control of BSG's is warranted in this post-op patient to prevent infection and promote would healing. Striving for all BSG's less than 150 mg/dL PLAN FOR INPATIENT GLYCEMIC CONTROL: * Basal insulin * Lantus 10 units SQ x1 this AM. Then 5 units BID (hold for BSG less than 140 mg/dL) * Bolus insulin * NovoLog per scale ACHS or Q6hrs while NPO * Goal Range: Low 110 mg/dL - High 140 mg/dL * Correction Factor: 20 mg/dL/unit * Nutritional / Prandial insulin per carb ratio of 1 unit per 7 grams CHO consumed Discharge recommendations * No diabetes medications required on discharge * Follow-up as outpatient for monitoring of possible pre-diabetes based on HbA1c of 5.9% obtained this admission
[2020-03-28] MEDS: INSULIN GLARGINE SOLOSTAR 100 UNITS/ML 3 ML PEN SC SCH (20:55)
[2020-03-29] MEDS: INSULIN ASPART 100 UNITS/ML 3 ML PEN SC SCH ×5 (00:02→21:42)
[2020-03-29] MEDS: MoRPHine SULFATE 4 MG/ML 1 ML CARP\\VIAL IV PRN (01:40)
[2020-03-29 04:43] LABS: Basophils # (auto) 0.02 K/uL (0-0.2); Basophils % (auto) 0.2 %; Eosinophils # (auto) 0.04 K/uL (0-0.5); Eosinophils % (auto) 0.4 %; Hematocrit (blood only) 29.8 % (42-52); Hemoglobin 10.1 g/dL (14.0-18.0); Immature Granulocytes # (auto) 0.02 K/uL (0.00-0.02); Immature Granulocytes % (auto) 0.2 %; Lymphocytes # (auto) 2.02 K/uL (1.2-3.4); Lymphocytes % (auto) 21.8 %; Mean Corpuscular Hemoglobin 33.7 pg (25-34); Mean Corpuscular Hgb Conc 33.9 g/dL (32-36); Mean Corpuscular Volume 99.3 fL (80-100); Mean Platelet Volume 9.3 fL (7.4-10.4); Monocytes % (auto) 10.8 %; Neutrophils # (auto) 6.18 K/uL (1.4-6.5); Neutrophils % (auto) 66.6 %; Platelet Count 156 K/uL (130-400); RDW Coefficient of Variation 13.5 % (11.5-14.5); RDW Standard Deviation 48.3 fL (36.4-46.3); White Blood Count 9.28 K/uL (4.8-10.8)
[2020-03-29 05:03] LABS: Calcium 7.9 mg/dl (8.5-10.1); Creatinine Clr Calc Pharmacy 74.7 ml/min; Est GFR (African American) 73.3; Est GFR (Non-African American) 63.2; Magnesium 2.3 mg/dl (1.8-2.4); Phosphorus 1.6 mg/dl (2.5-4.9); Potassium 4.1 mmol/L (3.5-5.1)
[2020-03-29] MEDS: HEPARIN SOD 5,000 UNIT/0.5 ML VIAL SC SCH ×3 (05:14→19:59)
[2020-03-29] MEDS: SODIUM CHLORIDE 0.9% 1000ML 1,000 ML IV SCH ×3 (05:14→22:57)
--- NOTE | 2020-03-29 07:43 | XRay Report ---
XR chest 1V portable CLINICAL HISTORY: hypoxia dyspnea COMPARISON STUDY: No previous studies for comparison. FINDINGS: Moderate cardiomegaly. Nasogastric tube inferior to the diaphragm. Small right effusion. Mo derate prominence of pulmonary vasculature. IMPRESSION: 1. Mild cardiomegaly. 2. Small right effusion. 3. Prominent pulmonary vasculature. ACT 112: Negative or not required by law. The above report was generated using voice recognition software. It may contain grammatical, syntax or spelling errors. Electronically signed by: Esteban Florez M.D. 03/29/2020 7:42 AM
--- NOTE | 2020-03-29 07:46 | Critical Care Progress Note ---
Date of Service March 29, 2020 Assessment & Plan (1) Admitted to intensive care unit: Impression: 74-year-old male admitted for aortobifem. Procedure performed 03/26/2020. Patient being observed in the ICU postoperatively. Postoperative course with postoperative ileus and renal insufficiency, improving today. Chest x-ray today demonstrates a small right-sided effusion Recommendations: 1. Status post aortobifem: Management per vascular surgery service. Has been hemodynamically stable. 2. Metabolic acidosis: Resolved 3. Probable ileus: Continue NG tube. History of reflux: Continue PPI. Diet per vascular surgery. Defer imaging to vascular surgery. Activity per vascular surgery 4. Hyperlipidemia: Restart lipid-lowering agent when feasible. 5. History of BPH: Simon catheter currently in place. Recommend restarting Flomax as soon as possible. 6. Acute renal failure: Back to normal this morning. Calcium and phosphate low. Replete and recheck. 7. Hyperglycemia: Continue sliding scale insulin and as needed Lantus. Hemoglobin A1c elevated at 5.9. May benefit from oral hypoglycemic therapy or close clinical follow-up in the outpatient setting. Should have diabetic education prior to discharge 8. Chest x-ray demonstrates a small pleural effusion with some atelectatic changes at the base. More aggressive incentive spirometry. Add flutter valve to his regiment. Patient needs to get out of bed to chair to improve pulmonary toilet. He is afebrile with a normal white blood cell count and I do not think antibiotics are warranted currently. Disposition per vascular surgery. (2) Aortic occlusion: (3) Metabolic acidosis: Admission and Anticipated Discharge Date Admission Date: March 26, 2020 Subjective Patient seen and examined. EMR reviewed. He continues to complain of some mild abdominal pain. No leg pain. No chest pain. He is occasionally coughing and has some rhonchorous breath sounds. Review of Systems Review of Systems: Unchanged from prior Physical Exam Constitutional: WD/WN, vitals as above Neck: trachea midline, no thyromegaly Respiratory: normal respiratory effort, lungs clear to auscultation Cardiovascular: RRR, no murmur, no edema Gastrointestinal (Abdomen): normal bowel sounds, soft, nontender, no hepa tosplenomegaly Inspection/Auscultation: abdomen normal to inspection; abdomen not distended and + abnormal bowel sounds Musculoskeletal: Extremities: extremities normal to inspection Skin: no rashes, warm and dry Lymphatic: no cervical lymphadenopathy Results & Data Results & Data ([facility]) Vital Signs (Past 12 Hours) Vital Signs Temp Pulse Resp BP Pulse Ox 03/29/20 06:00 92 H 21 137/47 L 92 03/29/20 05:00 96 H 21 135/66 94 03/29/20 04:19 37.5 C 03/29/20 04:00 37.4 C 95 H 22 148/67 H 92 03/29/20 03:00 88 21 121/56 L 93 03/29/20 02:00 89 21 150/62 H 93 03/29/20 01:00 71 22 156/60 H 92 03/29/20 00:01 37.2 C 03/29/20 00:00 37.2 C 88 27 H 166/69 H 93 03/28/20 23:06 37.6 C H 03/28/20 23:02 87 22 95 03/28/20 22:00 88 20 128/53 L 94 03/28/20 21:00 97 H 21 134/58 L 94 03/28/20 20:00 93 H 19 135/54 L 93 Laboratory Results 03/29/20 04:24 03/29/20 04:24 Phos 1.7 Calcium low at 7.9 Diagnostic Findings Chest x-ray from today was independently reviewed. There is a small right pleural effusion and potential right middle lobe collapse. Lung volumes are low. Coding Level of Care Code 39595 Subseq Hosp Care Lvl 3 Diagnoses Admitted to intensive care unit Z78.9 Aortic occlusion I70.0 Metabolic acidosis E87.2
[2020-03-29] MEDS ORDERED: SODIUM PHOSPHATE 3 MMOL/1 ML INFUSION IV STA (07:47)
[2020-03-29] MEDS ORDERED: SODIUM PHOSPHATE 15 MMOL in SODIUM CHLORIDE 0.9% 250 ML IV ONE (08:15)
[2020-03-29] MEDS ORDERED: CALCIUM GLUCONATE 10% 10 ML VIAL IV ONE (08:15)
[2020-03-29] MEDS ORDERED: CALCIUM GLUCONATE 10% 1,000 MG in SODIUM CHLORIDE 0.9% 50 ML IV ONE (08:15)
--- NOTE | 2020-03-29 09:36 | Surgery Progress Note ---
Date of Service March 29, 2020 Assessment & Plan (1) S/P aorto-bifemoral bypass surgery: Pt overall improving post op. Will trasfer to floor today. Dulcolox supp ordered. (2) Acute renal injury due to hypovolemia: Renal function now back to normal (3) Acute blood loss as cause of postoperative anemia: Hgb now 10.1. No active bleeding appreciated. Decrease in hgb secondary to operative blood loss and dilutional effect. Subjective Patient awake and alert. Sitting in chair. He pulled his ng tube out this am. Denies flatus. Abdomen with incisional pain controlled with pain meds. Physical Exam Constitutional: WD/WN, vitals as above Respiratory: Auscultation: lungs clear to auscultation bilaterally Cardiovascular: Rate/Rhythm: regular rate and regular rhythm Vessels: posterior tibial pulses present (Doppler pulses are good on both sides) and dorsalis pedis pulses present (Good Doppler pulses on both sides) Extrem ities: normal capillary refill (Both lower extremities); no edema Gastrointestinal (Abdomen): Inspection/Auscultation: + abdomen distended; + abnormal bowel sounds (none heard) Percussion/Palpation: + abdomen tender (Abdomen is tender to palpation.) and abdomen soft Skin: + incision ( dry and intact.) Psychiatric: Orientation: alert and oriented x 3 Genitourinary: good urine output Results & Data Vital Signs (Past 12 Hours) Vital Signs Temp Pulse Resp BP Pulse Ox 03/29/20 06:00 92 H 21 137/47 L 92 03/29/20 05:00 96 H 21 135/66 94 03/29/20 04:19 37.5 C 03/29/20 04:00 37.4 C 95 H 22 148/67 H 92 03/29/20 03:00 88 21 121/56 L 93 03/29/20 02:00 89 21 150/62 H 93 03/29/20 01:00 71 22 156/60 H 92 03/29/20 00:01 37.2 C 03/29/20 00:00 37.2 C 88 27 H 166/69 H 93 03/28/20 23:06 37.6 C H 03/28/20 23:02 87 22 95 03/28/20 22:00 88 20 128/53 L 94
[2020-03-29] MEDS ORDERED: BUMETANIDE 1 MG in SYRINGE 0 ML IV ONE (09:45)
[2020-03-29] MEDS: INSULIN GLARGINE SOLOSTAR 100 UNITS/ML 3 ML PEN SC SCH ×2 (10:00→21:43)
[2020-03-29] MEDS: METOPROLOL TARTRATE 25 MG TAB PO SCH ×2 (10:00→19:57)
[2020-03-29] MEDS: PANTOprazole 40 MG in SYRINGE 0 ML IV SCH (10:01)
[2020-03-29] MEDS ORDERED: Nursing to Pharmacy Communication ONE (16:05)
[2020-03-29] MEDS: WARFARIN SOD 7.5 MG TAB PO SCH (16:49)
[2020-03-30] MEDS: ACETAMINOPHEN 325 MG TAB PO PRN (04:21)
[2020-03-30] MEDS ORDERED: BUMETANIDE 1 MG in SYRINGE 0 ML IV ONE (04:45)
--- NOTE | 2020-03-30 06:07 | XRay Report ---
XR chest 1V portable CLINICAL HISTORY: SOB dyspnea COMPARISON STUDY: 03/29/2020 FINDINGS: Mild stable cardiomegaly. Slightly progressive segmental atelectasis/infiltrative change anne ng bases. Upper lungs are clear. Diaphragms are smooth. IMPRESSION: Slightly progressive bibasilar segmental atelectatic and/or infiltrative change. Moderat e stable cardiomegaly. ACT 112: Negative or not required by law. The above report was generated using voice recognition software. It may contain grammatical, syntax or spelling errors. Electronically signed by: Esteban Florez M.D. 03/30/2020 6:05 AM
[2020-03-30] MEDS ORDERED: SODIUM CHLORIDE 0.9% 1000ML 1,000 ML IV SCH (06:15)
[2020-03-30] MEDS: HEPARIN SOD 5,000 UNIT/0.5 ML VIAL SC SCH ×3 (06:27→21:31)
[2020-03-30 06:33] LABS: INR 1.1 (0.9-1.1); Prothrombin Time 11.4 Seconds (9.0-12.0)
[2020-03-30 06:48] LABS: BUN Creatinine Ratio 26.1 (10-20); Creatinine Clr Calc Pharmacy 90.7 ml/min; Est GFR (African American) 92.3; Est GFR (Non-African American) 79.7; Magnesium 2.2 mg/dl (1.8-2.4); Phosphorus 1.9 mg/dl (2.5-4.9); Potassium 3.3 mmol/L (3.5-5.1)
[2020-03-30] MEDS ORDERED: SODIUM PHOSPHATE 3 MMOL/1 ML INFUSION IV STA (08:36)
[2020-03-30] MEDS ORDERED: INSULIN ASPART 100 UNITS/ML 3 ML PEN SC SCH (08:40)
[2020-03-30] MEDS: INSULIN ASPART 100 UNITS/ML 3 ML PEN SC SCH (08:42)
--- NOTE | 2020-03-30 08:45 | Surgery Progress Note ---
Date of Service March 30, 2020 Assessment & Plan (1) S/P aorto-bifemoral bypass surgery: Doing well from vascular standpoint. Good distal flow. (2) Atelectasis of both lungs: Patient has slight worsening of his atelectasis on chest xray Encourage spirometry at bedside OOB and ambulate Subjective Patient awake and alert. Complaining of slight amount of shortness of breath today. Passing flatus Physical Exam Constitutional: WD/WN, vitals as above Respiratory: Auscultation: lungs clear to auscultation bilaterally, + diminished lung sounds (bilateral bases) and + rhonchi Cardiovascular: Rate/Rhythm: regular rate and regular rhythm Vessels: posterior tibial pulses present (Doppler pulses are good on both sides) and dorsalis pedis pulses present (Good Doppler pulses on both sides) Extremities: normal capillary refill (Both lower extremities); no edema Gastrointestinal (Abdomen): Inspection/Auscultation: normal bowel sounds (none heard) Percussion/Palpation: + abdomen tender (Abdomen is tender to palpation.) and abdomen soft Skin: + incision ( dry and intact.) Psychiatric: Orientation: alert and oriented x 3 Results & Data Vital Signs (Past 12 Hours) Vital Signs Temp Pulse Pulse Resp BP Pulse Ox 03/30/20 08:07 36.9 C 77 20 149/69 H 97 03/30/20 08:00 76 03/30/20 04:29 37.7 C H 86 20 150/70 H 97 03/30/20 00:01 37.6 C H 80 20 145/72 H 94
[2020-03-30] MEDS: POTASSIUM CHLORIDE / WTR 10 MEQ/100 ML PLCT IV SCH ×6 (09:08→15:56)
[2020-03-30] MEDS: TAMSULOSIN HCL 0.4 MG CAP PO SCH (09:10)
[2020-03-30] MEDS: METOPROLOL TARTRATE 25 MG TAB PO SCH ×2 (09:10→21:28)
[2020-03-30] MEDS: ROSUVASTATIN CALCIUM 20 MG TAB PO SCH (09:11)
[2020-03-30] MEDS: OXYCODONE/ACETAMINOPHEN 5mg/325mg TAB PO PRN ×2 (09:11→16:53)
[2020-03-30] MEDS ORDERED: SODIUM PHOSPHATE 15 MMOL in SODIUM CHLORIDE 0.9% 250 ML IV ONE (09:30)
[2020-03-30] MEDS: PANTOprazole 40 MG in SYRINGE 0 ML IV SCH (11:12)
[2020-03-30] MEDS: WARFARIN SOD 7.5 MG TAB PO SCH (16:55)
[2020-03-31 05:59] LABS: Basophils # (auto) 0.07 K/uL (0-0.2); Basophils % (auto) 0.7 %; Eosinophils # (auto) 0.48 K/uL (0-0.5); Eosinophils % (auto) 5.1 %; Hematocrit (blood only) 28.2 % (42-52); Hemoglobin 9.2 g/dL (14.0-18.0); Immature Granulocytes # (auto) 0.05 K/uL (0.00-0.02); Immature Granulocytes % (auto) 0.5 %; Lymphocytes # (auto) 2.77 K/uL (1.2-3.4); Lymphocytes % (auto) 29.5 %; Mean Corpuscular Hemoglobin 32.7 pg (25-34); Mean Corpuscular Hgb Conc 32.6 g/dL (32-36); Mean Corpuscular Volume 100.4 fL (80-100); Mean Platelet Volume 9.3 fL (7.4-10.4); Monocytes % (auto) 7.5 %; Neutrophils # (auto) 5.31 K/uL (1.4-6.5); Neutrophils % (auto) 56.7 %; Platelet Count 178 K/uL (130-400); RDW Coefficient of Variation 14.1 % (11.5-14.5); RDW Standard Deviation 50.4 fL (36.4-46.3); Red Blood Count 2.81 M/uL (4.7-6.1); White Blood Count 9.38 K/uL (4.8-10.8)
[2020-03-31 06:17] LABS: INR 1.2 (0.9-1.1); Prothrombin Time 12.2 Seconds (9.0-12.0)
[2020-03-31] MEDS: HEPARIN SOD 5,000 UNIT/0.5 ML VIAL SC SCH ×3 (06:20→20:55)
[2020-03-31 06:58] LABS: BUN Creatinine Ratio 23.8 (10-20); Calcium 8.1 mg/dl (8.5-10.1); Creatinine Clr Calc Pharmacy 88.6 ml/min; Est GFR (African American) 87.8; Est GFR (Non-African American) 75.8; Phosphorus 2.6 mg/dl (2.5-4.9); Potassium 3.3 mmol/L (3.5-5.1)
[2020-03-31] MEDS: METOPROLOL TARTRATE 25 MG TAB PO SCH ×2 (07:55→20:53)
[2020-03-31] MEDS: TAMSULOSIN HCL 0.4 MG CAP PO SCH (07:55)
[2020-03-31] MEDS: ROSUVASTATIN CALCIUM 20 MG TAB PO SCH (07:55)
[2020-03-31] MEDS ORDERED: POTASSIUM CHLORIDE 20 MEQ TABCR PO SCH (09:00)
[2020-03-31] MEDS: POTASSIUM CHLORIDE / WTR 10 MEQ/100 ML PLCT IV SCH ×6 (09:45→18:15)
[2020-03-31] MEDS: POTASSIUM CHLORIDE 20 MEQ TABCR PO SCH (09:46)
[2020-03-31] MEDS: DOCUSATE SODIUM 100 MG CAP PO SCH ×2 (09:46→20:54)
--- NOTE | 2020-03-31 10:02 | Surgery Progress Note ---
Date of Service March 31, 2020 Assessment & Plan (1) S/P aorto-bifemoral bypass surgery: Doing well from vascular standpoint. Good distal flow. Urinating well, taking PO well, passing flatus. Per Yahaira, move to med/surg tele. (2) Atelectasis of both lungs: Encourage spirometry at bedside OOB and ambulate Subjective 74 yo m POD #5 after aortobifemoral bypass, seen in f/u today. Pt admits in cisional pain and ARGUELLES, but states feeling ok otherwise. Denies feeling constipated and states did have 1 small BM. Passing flatus. States urinating a lot. Denies any other new complaints. Review of Systems Review of Systems: All systems reviewed & are unremarkable except as noted in HPI & below Physical Exam Constitutional: WD/WN, vitals as above Respiratory: Auscultation: + diminished lung sounds and + crackles Cardiovascular: Rate/Rhythm: + irregularly irregular Vessels: femoral pulses present, posterior tibial pulses present (excellent doppler signals BLE), dorsalis pedis pulses present (excellent doppler signals BLE) and radial pulses present; + abnormal peripheral pulses Extremities: normal capillary refill and + edema Gastrointestinal (Abdomen): Inspection/Auscultation: + abdomen distended (mildly distended, soft); + abnormal bowel sounds Percussion/Palpation: + abdomen tender (incisions) Musculoskeletal: no cyanosis or clubbing, extremities motor strength 5/5 Skin: + incision (C/D/I with malou, ) Neurologic: moves all extremities; no focal motor deficits Psychiatric: A+Ox3, euthymic affect Results & Data Vital Signs (Past 12 Hours) Vital Signs Temp Pulse Pulse Resp BP BP Pulse Ox 03/31/20 08:00 80 03/31/20 06:59 37.1 C 78 19 128/74 94 03/31/20 04:00 36.7 C 73 16 144/73 H 93 03/30/20 23:09 36.9 C 80 16 134/69 95
[2020-03-31] MEDS: OXYCODONE/ACETAMINOPHEN 5mg/325mg TAB PO PRN (10:37)
[2020-03-31] MEDS: FERROUS SULFATE 325 MG TAB PO SCH (16:36)
[2020-03-31] MEDS: WARFARIN SOD 7.5 MG TAB PO SCH (16:36)
[2020-04-01] MEDS: HEPARIN SOD 5,000 UNIT/0.5 ML VIAL SC SCH ×2 (06:20→14:05)
[2020-04-01 07:14] LABS: INR 1.4 (0.9-1.1); Prothrombin Time 14.6 Seconds (9.0-12.0)
[2020-04-01 07:31] LABS: Calcium 8.4 mg/dl (8.5-10.1); Creatinine Clr Calc Pharmacy 83.7 ml/min; Est GFR (African American) 82.7; Est GFR (Non-African American) 71.4; Magnesium 2.2 mg/dl (1.8-2.4); Phosphorus 2.8 mg/dl (2.5-4.9); Potassium 3.9 mmol/L (3.5-5.1)
[2020-04-01] MEDS: TAMSULOSIN HCL 0.4 MG CAP PO SCH (08:23)
[2020-04-01] MEDS: POTASSIUM CHLORIDE 20 MEQ TABCR PO SCH (08:23)
[2020-04-01] MEDS: DOCUSATE SODIUM 100 MG CAP PO SCH (08:24)
[2020-04-01] MEDS: ROSUVASTATIN CALCIUM 20 MG TAB PO SCH (08:24)
[2020-04-01] MEDS: FERROUS SULFATE 325 MG TAB PO SCH (08:24)
[2020-04-01] MEDS: METOPROLOL TARTRATE 25 MG TAB PO SCH (09:30)
[2020-04-01] MEDS ORDERED: BUMETANIDE 1 MG TAB PO ONE (10:35)
--- NOTE | 2020-04-01 10:40 | Surgery Progress Note ---
Date of Service April 01, 2020 Assessment & Plan (1) S/P aorto-bifemoral bypass surgery: Doing well from vascular standpoint. Good distal flow. Will d/c today with an increase in potassium from 20 to 40 for the next few days, 5 days of bumex, and pain pills. Will see him in the office in 10 to 14 days (2) Atelectasis of both lungs: Encourage spirometry at bedside OOB and ambulate Subjective 74 yo m POD #6 after aortobifemoral bypass, seen in f/u today. Pt admits incisional discomfort. Had small BM yesterday. Tolerating diet Physical Exam Constitutional: WD/WN, vitals as above Respiratory: Auscultation: lungs clear to auscultation bilaterally and + dimi nished lung sounds (bilateral bases) Cardiovascular: Rate/Rhythm: regular rate and regular rhythm Vessels: posterior tibial pulses present (Doppler pulses are good on both sides) and dorsalis pedis pulses present (Good Doppler pulses on both sides) Extremities: normal capillary refill (Both lower extremities) and + edema (does have bilateral pedal edema) Gastrointestinal (Abdomen): Inspection/Auscultation: normal bowel sounds (none heard) Percussion/Palpation: + abdomen tender (Abdomen is tender to palpation.) and abdomen soft Skin: + incision ( dry and intact.) Psychiatric: Orientation: alert and oriented x 3 Results & Data Vital Signs (Past 12 Hours) Vital Signs Temp Pulse Pulse Resp BP BP Pulse Ox 04/01/20 07:30 36.6 C 60 20 117/63 94 04/01/20 07:12 74 04/01/20 04:57 36.3 C L 73 20 135/70 94 03/31/20 23:20 37.2 C 79 19 110/70 92 03/31/20 23:18 78
--- NOTE | 2020-04-08 10:22 | Discharge Summary ---
Date of Service April 08, 2020 Admission HPI Per Admitting Provider Mr. Moseley is a 73-year-old gentleman, who was referred for evaluation of peripheral artery disease. In speaking with Mr. Msoeley, he states that he has been having some short-distance claudication symptoms for the past several months. He reports he is able to walk approximately 150 feet before he begins to have crampy pain in his bilateral calves. He feels that the pain is equal and one side is not predominate. He denies any rest pain and has had no issues with tissue loss or poorly healing lower extremity wounds. 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 Recommended pt un dergo aortobifemoral bypass. Pt agreeable. Admission Exam Per Admitting Provider On physical exam, Mr. Moseley appears in no acute distress. He is afebrile. His blood pressure is 148/68 with a heart rate of 62 and respiratory rate of 16. He is saturating 96% on room air today. Examination of his abdomen is soft, nontender, and nondistended. There is no palpable pulsatile mass present. On examination of his groins, he has 1+ bilateral femoral pulses. He has no appreciable popliteal pulse. He has bilateral mottling of his lower extremities, both of which are cool to the touch. There are no open wounds or ulcers present. He has no palpable distal pulse in either extremity, but does have Doppler signals. His lungs are clear. His heart had a RRR. HEENT are wnl. Principal Diagnosis 1. s/p aortobifemoral bypass 2. Aortoiliac occlusive disease 3. Atelectasis Discharge Exam Constitutional WD/WN, vitals as above Respiratory Auscultation: + diminished lung sounds and + crackles Cardiovascular Rate/Rhythm: + irregularly irregular Vessels: femoral pulses present, posterior tibial pulses present (excellent doppler signals BLE), dorsalis pedis pulses present (excellent doppler signals BLE) and radial pulses present; + abnormal peripheral pulses Extremities: normal capillary refill and + edema Gastrointestinal (Abdomen) Inspection/Auscultation: + abdomen distended (mildly distended, soft); + abnormal bowel sounds Percussion/Palpation: + abdomen tender (incisions) Musculoskeletal no cyanosis or clubbing, extremities motor strength 5/5 Skin + incision (C/D/I with malou, ) Neurologic moves all extremities; no focal motor deficits Psychiatric A+Ox3, euthymic affect Discharge Data Allergies Allergy/AdvReac Type Severity Reaction Status Date / Time No Known Allergies Allergy Verified 03/21/20 15:27 Consultations 03/26/20 15:38 Consult Material Analyst Routine Procedures Performed Operation Date: 03/26/20 08:00 Actual Procedures p Aortobifemoral Bypass(Not Applicable) - Ozzie Syed MD Ordered Studies 04/01/20 09:32 US - OR guided needle placemen Urgent Hospital Course (1) S/P aorto-bifemoral bypass surgery: Doing well from vascular standpoint. POD #6. Good distal flow. Will d/c today with an increase in potassium from 20 to 40 for the next few days, 5 days of bumex, and pain pills. Will see him in the office in 10 to 14 days (2) Atelectasis of both lungs: Encourage spirometry at bedside OOB and ambulate Total Time Total Time Spent Total Time Spent (In Minutes): 0 Discharge Plan Discharge Items [facility] Disposition: [facility] Reason For Visit: Aorto Iliac Occlusion Discharge Diagnosis: Infrarenal aortic occlusion, post aortobifemoral bypass Activity: Resume your previous activity Lifting: No more than 10 pounds Bathing: May shower/bathe in 3 days Non-emergency contact: Surgeon Call non-emergency contact if: your temperature is above 101.5, your wound has increased redness, your wound has increased drainage and your wound pain has increased Follow-up/Referrals: Blessing SORIANO [Primary Care Provider] - Diet: Heart Healthy Addtl Attending Provider Instructions: ACTIVITY RECOMMENDATIONS: See Above SPECIAL CARE INSTRUCTIONS: Call your doctor if: * Temperature above 101 degrees * Pain not relieved by pain medicine ordered * There is increased drainage or redness from any incision * You have any unanswered questions or concerns. Call [phone] to schedule a follow up appointment if one not already scheduled. Pending Studies at Discharge: No Stand-Alone Forms: My [facility] Skilled Items Patient informed of condition?: Yes Discharge Level of Care: Other Discharge Prognosis: Improving Lines: None Urinary Catheter: No Medications and DC Order Prescriptions: New oxycodone-acetaminophen [Percocet] 5-325 mg Tablet 2 tab PO Q4H PRN (Reason: pain) Qty: 30 RF: 0 docusate sodium 100 mg Capsule 100 mg PO BID@0800,1999 Qty: 10 RF: 0 Continued warfarin 7.5 mg Tablet 7.5 mg PO DAILY RF: 0 tamsulosin 0.4 mg Capsule 0.4 mg PO DAILY RF: 0 multivitamin with iron Tablet 1 tab PO BID RF: 0 rosuvastatin 20 mg Tablet 20 mg PO DAILY RF: 0 metoprolol tartrate 25 mg Tablet 25 mg PO BID RF: 0 enoxaparin 120 mg/0.8 mL Syringe 120 mg SUBCUT DAILY RF: 0 Discontinued potassium chloride 20 mEq Tablet Extended Release 20 meq PO DAILY RF: 0 Discharge Orders: Discharge Order (Routine); Ordered 04/01/20 Ordered By: Ozzie Syed Admission Data Admit Date/Time: 03/26/20 09:20 Attending Provider: Ozzie Syed Admit Provider: Ozzie Syed Primary Care Provider: Blessing SORIANO Other Providers: Hair Genao ; Jovan Mckeon ; Luis Ace ; Dewey Rooney ; Girma Carlisle ; Mau Alvarenga ; Randy Templeton Other Interventions: Discharge Summary Assessment (RN) Last Done: 04/01/20 11:32 DC Date/Time DO NOT enter until pt leaves facility: 04/01/20 15:04
== END 2020-04-01 15:04 | DRG 268 ==
LOC: ASU 06:06 → 1E 09:20 → 2S 03-29 14:42 → 2W 03-31 14:38